=== PATIENT | female | born 1965 | race Caucasian/White ===

== ENCOUNTER 2024-03-08 17:13 | Observation (INO) | payer BC ==
--- NOTE | 2024-03-08 18:02 | ERPHSYRPT ---
- History of Present Illness Time Seen by Provider: 03/08/24 17:45 Source: patient Exam Limitations: no limitations, clinical condition Patient Subjective Stated Complaint: PT states "I slipped and fell and I hurt my knees and my right elbow." Triage Nursing Assessment: Pt presented alert and oriented X 3, skin pwd. Pt ambulates with an upright steady gait, able to speak in clear full sentences. Pt has abrasion noted to bilat knee and laceration noted to right elbow. Laceration to right elbow is 6 cm x 6 cm Occurred: just prior to arrival Reason for Fall: lost balance, slipped, tripped Injuries/Pain Location: upper extremity, lower extremity Loss of Consciousness: no loss of consciousness Quality: aching, burning, cramping Severity of Pain-Max: moderate Severity of Pain-Current: moderate Modifying Factors: Improves With: nothing Associated Symptoms (Fall): denies symptoms Allergies/Adverse Reactions: codeine Allergy (Severe, Verified 03/08/24 17:37) altered mental Home Medications: Nebivolol HCl [Bystolic] 2.5 mg PO DAILY 03/08/24 [History] Hx Tetanus, Diphtheria Vaccination/Date Given: No Hx Influenza Vaccination/Date Given: No Hx Pneumococcal Vaccination/Date Given: No Immunizations Up to Date: No Travel Risk - International Travel Have you traveled outside of the country in past 3 weeks: No - Emerging Infectious Disease Are you exhibiting symptoms associated with any current EIDs: No - Review of Systems Eyes: No Symptoms Ears, Nose, & Throat: No Symptoms Respiratory: No Symptoms Cardiac: No Symptoms Abdominal/Gastrointestinal: No Symptoms Genitourinary Symptoms: No Symptoms Musculoskeletal: No Symptoms Skin: No Symptoms Neurological: No Symptoms Psychological: No Symptoms Endocrine: No Symptoms Hematologic/Lymphatic: No Symptoms Immunological/Allergic: No Symptoms - Past Medical History Pertinent Past Medical History: Yes Cardiac History: Hypertension - Past Surgical History Past Surgical History: Yes Other Surgical History: c section. colonoscopy - Social History Smoking Status: Never smoker Exposure to second hand smoke: No Drug Use: none - Social Determinants of Health Will the patient participate in the screening: Declined to provide - Nursing Vital Signs Nursing Vital Signs: Initial Vital Signs Temperature 97.8 F 03/08/24 17:29 Pulse Rate 85 03/08/24 17:29 Respiratory Rate 18 03/08/24 17:29 Blood Pressure 153/75 03/08/24 17:29 O2 Sat by Pulse Oximetry 96 03/08/24 17:29 Pain Scale Pain Intensity 4 - Physical Exam General Appearance: no apparent distress Head Injury: no evidence of injury Eye Exam: PERRL/EOMI ENT Exam: airway nml Neck Exam: supple Respiratory/Chest Exam: normal breath sounds Cardiovascular Exam: normal heart sounds Gastrointestinal Exam: soft, normal bowel sounds Extremity Exam: other (patient has laceration to the right elbow that communicates with the joint with decreased rom and has bilateral abrasions to felipe th knees with pain with ROM ) Neurologic Exam: alert, oriented x 3 Skin Exam: other (there is a large laceration to the right elbow this ia 3 cm x 3 cm and no active bleeding there are large abrasions to the anterior aspects of both knees ) SpO2: 96 Ordered Tests: Active Orders 24 hr Category Date Time Status ELBOW (MINIMUM 3 VIEWS) Stat Exams 03/08/24 18:02 Taken KNEE (3 VIEWS) Stat Exams 03/08/24 18:02 Taken KNEE (3 VIEWS) Stat Exams 03/08/24 18:12 Taken CBC Stat Lab 03/08/24 18:00 Completed CMP Stat Lab 03/08/24 18:00 Completed Transfer Order Routine Transfer 03/08/24 Ordered Medication Summary Discontinued Medications Generic Name Dose Route Start Last Admin Trade Name Freq PRN Reason Stop Dose Admin Diphtheria/Tetanus/Acell Pertussis 0.5 ml 03/08/24 18:04 03/08/24 18:13 Tdap --Diph,Pertuss(Acell),Tet Vac/Pf 0.5 Ml Vial IM 03/08/24 18:05 0.5 ml .ONCE ONE Administration Diphtheria/Tetanus/Acell Pertussis Confirm 03/08/24 18:12 Tdap --Diph,Pertuss(Acell),Tet Vac/Pf 0.5 Ml Vial Administered 03/08/24 18:13 Dose 0.5 ml IM .STK-MED ONE Lab/Rad Data: Laboratory Result Diagrams 03/08/24 18:00 03/08/24 18:00 Laboratory Results 03/08/24 03/08/24 Range/Units 18:00 18:00 WBC 8.8 (4.0-10.5) x10^3/uL RBC 4.19 (4.1-5.4) x10^6/uL Hgb 12.2 (12.0-16.0) g/dL Hct 37.0 (35-47) % MCV 88.3 (78-100) fL MCH 29.1 (26-32) pg MCHC 33.0 (32-36) g/dL RDW 13.6 (11.5-14.0) % Plt Count 361 (150-450) x10^3/uL MPV 9.6 (7.5-11.0) fL Sodium 138 (135-145) mmol/L Potassium 3.9 (3.5-5.1) mmol/L Chloride 108 H (98-107) mmol/L Carbon Dioxide 22 (22-30) mmol/L Anion Gap 12.1 (5-15) MEQ/L BUN 12 (7-17) mg/dL Creatinine 0.63 (0.52-1.04) mg/dL Estimated GFR 102.1 ML/MIN Glucose 171 H (74-106) mg/dL Calcium 9.2 (8.4-10.2) mg/dL Total Bilirubin 0.50 (0.2-1.3) mg/dL AST 26 (14-36) U/L ALT 27 (0-35) U/L Alkaline Phosphatase 59 (38-126) U/L Serum Total Protein 7.8 (6.3-8.2) g/dL Albumin 4.3 (3.5-5.0) g/dL - Progress Progress Note: Care of this patient was discussed with Dr. Plaza the orthopedic surgeon on- call he will admit the patient to his service for surgical exploration and washout in the morning patient was updated with the plan and is agreeable she was given opioid analgesia and antibiotics will be ordered. 03/08/24 23:09 Will see patient in: hospital (observation) Counseled pt/family regarding: lab results Medical Desision Making - Discussion of managment Care discussed with:: specialist Reviewed:: Need for additional workup Agreed on:: decision to admit, place in obs - Departure Departure Disposition: Observation Clinical Impression: Contusion of knee, left, Contusion of right knee, Contusion, knee, Contusion of elbow, right Condition: Stable Critical Care Time: No Referrals: ALBERT MCCULLOUGH NP [Primary Care Provider] - Follow up/PCP as directed
[2024-03-08] MEDS ORDERED: Adacel Vial IM ONE (18:12)
[2024-03-08] MEDS: Adacel Vial IM ONE (18:13)
[2024-03-08 18:22] LABS: Hemoglobin 12.2 g/dL (12.0-16.0); Mean Cell Volume 88.3 fL (78-100); Mean Corpuscular Hemoglobin 29.1 pg (26-32); Mean Platelet Volume 9.6 fL (7.5-11.0); Platelet Count 361 x10^3/uL (150-450); Red Blood Count 4.19 x10^6/uL (4.1-5.4); Red Cell Distribution Width 13.6 % (11.5-14.0); White Blood Count 8.8 x10^3/uL (4.0-10.5)
[2024-03-08 18:36] LABS: ALBUMIN 4.3 g/dL (3.5-5.0); ANION GAP 12.1 MEQ/L (5-15); BILIRUBIN,TOTAL 0.5 mg/dL (0.2-1.3); Calcium 9.2 mg/dL (8.4-10.2); Creatinine 1 0.63 mg/dL (0.52-1.04); EST GLOMERULAR FILTRATION RATE 102.1 ML/MIN; Potassium 3.9 mmol/L (3.5-5.1); Total Protein 7.8 g/dL (6.3-8.2)
[2024-03-09] MEDS ORDERED: Zofran 4 MG/2 ML VIAL IV PRN (00:52)
[2024-03-09] MEDS ORDERED: Hydromorphone 1 mg/ml Injection IV PRN ×2 (00:52→01:19)
--- NOTE | 2024-03-09 01:13 | PCM.CONS ---
History of Present Illness - Reason for Consult Chief Complaint: fall Date of Consultation Date: 03/08/24 Reason for Consult: medical management Requesting Provider: Dr. Zeng Consulting Provider: LEONID VIGIL MD History of Present Illness: Ms. NEWELL is a 58 year old female with a past medical history significant for hypertension and hyperlipidemia previously on statin, now diet controlled, who presents to the hospital after going for a walk, then tripped over some concrete with her toe, then falling down initially on L knee, stumbled onto R knee, finally falling onto her R elbow. No head injury or loss of consciousness. She had some scrapes on her knees but was bleeding fairly profusely from her elbow, so she came to the ER. She was evaluated and [facility]. Hospitalist service was consulted to assist with her medical management pre/tracy/post operatively. She is resting in bed, awake/alert. No fever/chills. No chest pain or shortness of breath. No nausea, vomiting or diarrhea. No dysuria, hematuria or frequency. This visit was conducted entirely by telehealth with patient's consent. - Review of Systems Constitutional: No Fever, No Chills, No Fatigue Eyes: No Eye Pain, No Vision Changes Ears, Nose, & Throat: No Nose Discharge, No Sinus Drainage Respiratory: No Cough, No Orthopnea, No Short Of Breath Cardiac: No Chest Pain, No Palpitations Abdominal/Gastrointestinal: No Abdominal Pain, No Nausea, No Vomiting, No Diarrhea Genitourinary Symptoms: No Dysuria, No Frequency, No Hematuria Musculoskeletal: Fall, Joint Pain, No Neck Pain Skin: No Pruritis, No Rash Neurological: No Dizziness, No Focal Weakness Psychological: No Suicidal Ideations Endocrine: No Polyuria, No Polydipsia Medications & Allergies Home Medications: Home Medication List Nebivolol HCl [Bystolic] 2.5 mg PO DAILY 03/08/24 [History Confirmed 03/08/24] Allergies/Adverse Reactions: Allergies Allergy/AdvReac Type Severity Reaction Status Date / Time codeine Allergy Severe altered Verified 03/08/24 17:37 mental - Past Medical History Past Medical History: Yes Cardiac History: Hypertension - Past Surgical History Past Surgical History: Yes Other Surgical History: c section. colonoscopy - Social History Smoking Status: Never smoker Exposure to second hand smoke: No Alcohol: None Drug Use: none - Social Determinants of Health Will the patient participate in the screening: Declined to provide - Physical Exam Vital Signs: Vital Signs - 24 hr Temp Pulse Resp BP BP Pulse Ox 03/08/24 23:16 96 03/08/24 22:15 78 160/94 97 03/08/24 22:00 72 166/88 98 03/08/24 21:45 146/106 96 03/08/24 21:30 137/83 95 03/08/24 21:15 145/78 98 03/08/24 21:00 77 159/94 96 03/08/24 20:46 154/81 96 03/08/24 20:30 74 131/98 94 L 03/08/24 20:15 155/102 97 03/08/24 20:00 70 146/89 98 03/08/24 19:45 158/95 98 03/08/24 19:30 79 16 159/75 98 03/08/24 19:00 165/92 97 03/08/24 18:15 160/95 97 03/08/24 18:01 85 171/107 96 03/08/24 17:45 126/95 03/08/24 17:30 136/80 95 03/08/24 17:29 97.8 F 85 18 153/75 96 General Appearance: no apparent distress Neurologic Exam: alert, oriented x 3, cooperative Ears, Nose, Throat Exam: dry mucous membranes Neck Exam: supple Respiratory Exam: No respiratory distress Cardiovascular Exam: regular rate/rhythm Gastrointestinal/Abdomen Exam: soft Extremity Exam: swelling, No pedal edema Skin Exam: No rash Results - Labs Lab/Micro Results: Lab Results-Last 24 Hours 03/08/24 03/08/24 Range/Units 18:00 18:00 WBC 8.8 (4.0-10.5) x10^3/uL RBC 4.19 (4.1-5.4) x10^6/uL Hgb 12.2 (12.0-16.0) g/dL Hct 37.0 (35-47) % MCV 88.3 (78-100) fL MCH 29.1 (26-32) pg MCHC 33.0 (32-36) g/dL RDW 13.6 (11.5-14.0) % Plt Count 361 (150-450) x10^3/uL MPV 9.6 (7.5-11.0) fL Sodium 138 (135-145) mmol/L Potassium 3.9 (3.5-5.1) mmol/L Chloride 108 H (98-107) mmol/L Carbon Dioxide 22 (22-30) mmol/L Anion Gap 12.1 (5-15) MEQ/L BUN 12 (7-17) mg/dL Creatinine 0.63 (0.52-1.04) mg/dL Estimated GFR 102.1 ML/MIN Glucose 171 H (74-106) mg/dL Calcium 9.2 (8.4-10.2) mg/dL Total Bilirubin 0.50 (0.2-1.3) mg/dL AST 26 (14-36) U/L ALT 27 (0-35) U/L Alkaline Phosphatase 59 (38-126) U/L Serum Total Protein 7.8 (6.3-8.2) g/dL Albumin 4.3 (3.5-5.0) g/dL - Radiology Impressions Radiology Exams & Impressions: Radiology Procedures Category Date Time Status ELBOW (MINIMUM 3 VIEWS) Stat Exams 03/08/24 18:02 Taken KNEE (3 VIEWS) Stat Exams 03/08/24 18:02 Taken KNEE (3 VIEWS) Stat Exams 03/08/24 18:12 Taken Assessment/Plan (1) Fall (on)(from) sidewalk curb, initial encounter Current Visit: Yes Status: Acute Assessment & Plan: Secondary to tripping --> skinned knees and RUE elbow injury Code(s): W10.1XXA - FALL (ON)(FROM) SIDEWALK CURB, INITIAL ENCOUNTER (2) Essential (primary) hypertension Current Visit: Yes Status: Acute Assessment & Plan: On low dose Bystolic, blood pressure target 130/80 1. Continue bp meds 2. Low Na diet 3. Monitor blood pressure readings Code(s): I10 - ESSENTIAL (PRIMARY) HYPERTENSION (3) Contusion of elbow, right Current Visit: Yes Status: Acute Qualifiers: Encounter type: initial encounter Qualified Code(s): S50.01XA - Contusion of right elbow, initial encounter Assessment & Plan: Secondary to fall, with need for surgical intervention 1. NPO, gentle IVFs 2. Plans per surgery 3. Avoid blood thinners 4. PT Code(s): S50.01XA - CONTUSION OF RIGHT ELBOW, INITIAL ENCOUNTER
[2024-03-09] MEDS: Dextrose 5% -0.45 NaCl 1000 ML 1,000 ML IV SCH (02:21)
[2024-03-09 05:22] LABS: Hematocrit 38.3 % (35-47); Hemoglobin 12.5 g/dL (12.0-16.0); Mean Cell Volume 88.5 fL (78-100); Mean Corpuscular Hemoglobin 28.9 pg (26-32); Mean Corpuscular Hgb Concent. 32.6 g/dL (32-36); Mean Platelet Volume 9.4 fL (7.5-11.0); Platelet Count 342 x10^3/uL (150-450); Red Blood Count 4.33 x10^6/uL (4.1-5.4); Red Cell Distribution Width 13.5 % (11.5-14.0); White Blood Count 10.4 x10^3/uL (4.0-10.5)
[2024-03-09 06:07] LABS: ALBUMIN 4.4 g/dL (3.5-5.0); ANION GAP 10.5 MEQ/L (5-15); BILIRUBIN,TOTAL 0.6 mg/dL (0.2-1.3); Calcium 9.6 mg/dL (8.4-10.2); Creatinine 1 0.58 mg/dL (0.52-1.04); EST GLOMERULAR FILTRATION RATE 104.2 ML/MIN; Total Protein 7.9 g/dL (6.3-8.2)
--- NOTE | 2024-03-09 07:08 | PCM.HP ---
History of Present Illness - Chief Complaint Chief Complaint: Right elbow laceration History of Present Illness: is a 58 year old female, [id number],He fell at home yesterday about 4 PM lacerating her right elbow. She was seen by the emergency room with exploration of the wound down to bone with tendon exposed.Had no prior problems the elbow she does have a right ring finger trigger digit.Received tetanus prophylaxis and Kefzol and was admitted.Patient has no numbness or tingling. She has no other serious health problems other than hypertension.No anesthesia before without problems.No chest pain shortness of breath fevers or chills. She does keyboarding Medications & Allergies Home Medications: Home Medication List Nebivolol HCl [Bystolic] 2.5 mg PO DAILY 03/08/24 [History Confirmed 03/09/24] Allergies/Adverse Reactions: Allergies Allergy/AdvReac Type Severity Reaction Status Date / Time codeine Allergy Severe altered Verified 03/09/24 01:46 mental latex Allergy Mild Swelling Verified 03/09/24 03:20 - Past Medical History Past Medical History: Yes Neurological History: No Pertinent History ENT History: No Pertinent History Cardiac History: Hypertension Respiratory History: No Pertinent History Endocrine Medical History: No Pertinent History Musculoskelatal History: No Pertinent History GI Medical History: No Pertinent History History: No Pertinent History Pyscho-Social History: No Pertinent History Reproductive Disorders: No Pertinent History - Female History Are you now?: No - Past Surgical History Past Surgical History: Yes Neuro Surgical History: No Pertinent History Cardiac History: No Pertinent History Respiratory Surgery: No Pertinent History GI Surgical History: No Pertinent History Genitourinary Surgical Hx: No Pertinent History Musculskeletal Surgical Hx: No Pertinent History, Orthopedic Surgery Female Surgical History: No Pertinent History Other Surgical History: c section. colonoscopy/EGD. carpal tunnel surgery on right hand - Social History Smoking Status: Never smoker Exposure to second hand smoke: No Alcohol: None Drug Use: none - Social Determinants of Health Will the patient participate in the screening: Yes Do you worry about a steady place to live?: No Do you have any problems with any of the following?: No known problems In the past 12 months,have you had to go without utilities?: No Have you or anyone in your house had to go without enough: No Transportation Issues: No Has anyone in your support network made you feel unsafe?: No Does the patient want assistance with any of the above?: No - Physical Exam Vital Signs: Vital Signs - 24 hr Temp Pulse Resp BP BP Pulse Ox 03/09/24 04:00 97.5 F 77 20 176/72 96 03/09/24 01:27 97.5 F 73 20 186/84 96 03/09/24 00:32 184/93 03/09/24 00:15 166/87 98 03/09/24 00:00 72 18 178/115 96 03/08/24 23:45 167/103 98 03/08/24 23:30 163/92 97 03/08/24 23:16 96 03/08/24 23:15 153/88 96 03/08/24 23:00 77 18 166/98 97 03/08/24 22:45 160/85 97 03/08/24 22:30 154/93 97 03/08/24 22:15 78 160/94 98 03/08/24 22:00 72 166/88 98 03/08/24 21:45 146/106 96 03/08/24 21:30 137/83 95 03/08/24 21:15 145/78 98 03/08/24 21:00 77 159/94 96 03/08/24 20:46 154/81 96 03/08/24 20:30 74 131/98 94 L 03/08/24 20:15 155/102 97 03/08/24 20:00 70 146/89 98 03/08/24 19:45 158/95 98 03/08/24 19:30 79 16 159/75 98 03/08/24 19:00 165/92 97 03/08/24 18:15 160/95 97 03/08/24 18:01 85 171/107 96 03/08/24 17:45 126/95 03/08/24 17:30 136/80 95 03/08/24 17:29 97.8 F 85 18 153/75 96 Additional Findings: 03/09/24 07:04 Pleasant female, no apparent distress, alert and orient x 3, moderately obese Seen with her Heart regular rate rhythm Abdomen soft nontender positive bowel sounds Lungs clear bilaterally Right elbow shows about a 4 cmTransverse laceration with exposed triceps tendon and most likely tip of the olecranon.No bleeding. Patient is able to actively extend the elbow 5/5 and flex 5/5. Has good sensation all digits. 2+ radial pulse. 5/5 radial median and ulnar nerve function. Right elbow x-ray shows A soft tissue defectposteriorly with Air seen extra- articular Results - Labs Lab/Micro Results: Lab Results-Last 24 Hours 03/08/24 03/08/24 03/09/24 Range/Units 18:00 18:00 05:12 WBC 8.8 10.4 (4.0-10.5) x10^3/uL RBC 4.19 4.33 (4.1-5.4) x10^6/uL Hgb 12.2 12.5 (12.0-16.0) g/dL Hct 37.0 38.3 (35-47) % MCV 88.3 88.5 (78-100) fL MCH 29.1 28.9 (26-32) pg MCHC 33.0 32.6 (32-36) g/dL RDW 13.6 13.5 (11.5-14.0) % Plt Count 361 342 (150-450) x10^3/uL MPV 9.6 9.4 (7.5-11.0) fL Sodium 138 (135-145) mmol/L Potassium 3.9 (3.5-5.1) mmol/L Chloride 108 H (98-107) mmol/L Carbon Dioxide 22 (22-30) mmol/L Anion Gap 12.1 (5-15) MEQ/L BUN 12 (7-17) mg/dL Creatinine 0.63 (0.52-1.04) mg/dL Estimated GFR 102.1 ML/MIN Glucose 171 H (74-106) mg/dL Calcium 9.2 (8.4-10.2) mg/dL Total Bilirubin 0.50 (0.2-1.3) mg/dL AST 26 (14-36) U/L ALT 27 (0-35) U/L Alkaline Phosphatase 59 (38-126) U/L Serum Total Protein 7.8 (6.3-8.2) g/dL Albumin 4.3 (3.5-5.0) g/dL 03/09/24 Range/Units 05:12 WBC (4.0-10.5) x10^3/uL RBC (4.1-5.4) x10^6/uL Hgb (12.0-16.0) g/dL Hct (35-47) % MCV (78-100) fL MCH (26-32) pg MCHC (32-36) g/dL RDW (11.5-14.0) % Plt Count (150-450) x10^3/uL MPV (7.5-11.0) fL Sodium 139 (135-145) mmol/L Potassium 4.0 (3.5-5.1) mmol/L Chloride 108 H (98-107) mmol/L Carbon Dioxide 24 (22-30) mmol/L Anion Gap 10.5 (5-15) MEQ/L BUN 9 (7-17) mg/dL Creatinine 0.58 (0.52-1.04) mg/dL Estimated GFR 104.2 ML/MIN Glucose 105 (74-106) mg/dL Calcium 9.6 (8.4-10.2) mg/dL Total Bilirubin 0.60 (0.2-1.3) mg/dL AST 28 (14-36) U/L ALT 28 (0-35) U/L Alkaline Phosphatase 62 (38-126) U/L Serum Total Protein 7.9 (6.3-8.2) g/dL Albumin 4.4 (3.5-5.0) g/dL - Radiology Impressions Radiology Exams & Impressions: Radiology Procedures Category Date Time Status ELBOW (MINIMUM 3 VIEWS) Stat Exams 03/08/24 18:02 Taken KNEE (3 VIEWS) Stat Exams 03/08/24 18:02 Taken KNEE (3 VIEWS) Stat Exams 03/08/24 18:12 Taken Assessment/Plan (1) Laceration of right elbow Current Visit: Yes Status: Acute Assessment & Plan: Patient will undergo debridement of the wound and irrigationWith exploration of theTriceps tendon.She will have repair of any indicated structures.She understands the risk of surgery include bleeding, infection, damage to nerves or blood vessels, possible need for further surgery, and the risk of medical or anesthetic complications including the risk of .She will be sent home on p.o. antibiotics and have sutures removed in 12 to 14 days Code(s): S51.011A - LACERATION WITHOUT FOREIGN BODY OF RIGHT ELBOW, INIT ENCNTR
[2024-03-09] MEDS ORDERED: MARCAINE 0.25% PF/ EPI 1:200,000 ONE (07:14)
[2024-03-09] MEDS: CEFAZOLIN 2 GM-D5W BAG** 2 GM/50 ML ML IV ONE (07:23)
[2024-03-09 07:28] VITALS: RESP 16
[2024-03-09] MEDS ORDERED: SUBLIMAZE 100 MCG/2 ML ONE ×2 (07:28→08:38)
[2024-03-09] MEDS ORDERED: Xylocaine-Mpf 2% 5 Ml Vial ONE (07:28)
[2024-03-09] MEDS ORDERED: Versed 2 MG/2 ML Injection ONE (07:28)
[2024-03-09] MEDS ORDERED: DIPRIVAN 200 MG/20 ML IV ONE (07:28)
[2024-03-09] MEDS ORDERED: Decadron 4 MG INJ ONE (07:28)
[2024-03-09] MEDS ORDERED: Zofran 4 MG/2 ML VIAL ONE (07:28)
[2024-03-09] MEDS ORDERED: TORAdol 30 mg Injection ONE (07:58)
[2024-03-09] MEDS ORDERED: PHENYLEPHRINE HCL ONE (08:02)
[2024-03-09] MEDS ORDERED: Hydromorphone 1 mg/ml Injection ONE (08:38)
--- NOTE | 2024-03-09 08:41 | XRAY ---
Indication: Pain following fall. Comparison: None 3 view right knee demonstrates minimal medial joint space narrowing/spurring, tiny medial supracondylar spurring, minimal patellofemoral degenerative changes, and anterior bandage material. No other bony, articular, or soft tissue abnormalities.
--- NOTE | 2024-03-09 08:41 | XRAY ---
Indication: Pain following fall. Comparison: None 3 view right knee demonstrates minimal medial joint space narrowing/spurring and minimal patellofemoral degenerative changes. No other bony, articular, or soft tissue abnormalities.
--- NOTE | 2024-03-09 08:41 | XRAY ---
Indication: Pain following fall. Comparison: None 3 view right elbow demonstrates small medial/lateral epicondyle spurring and posterior soft tissue laceration. No other bony, articular, or soft tissue abnormalities.
[2024-03-09] MEDS ORDERED: BENADRYL 50 MG/ML ONE (09:16)
[2024-03-09] MEDS ORDERED: NEBIVOLOL HCL 2.5 MG PO SCH (10:00)
--- NOTE | 2024-03-09 11:29 | PCM.DS ---
Discharge Summary Date of Admission: 03/09/24 00:38 Date of Discharge: 03/09/24 Admitting Physician: NORM SLATER MD Consults: Consults on Case 03/09/24 03:28 Consult Tele-Health [Tele-Health Consult] ROUTINE Primary Care Provider: ALBERT MCCULLOUGH Allergies Allergies codeine Allergy (Severe, Verified 03/09/24 01:46) altered mental latex Allergy (Mild, Verified 03/09/24 03:20) Swelling Hospital Summary - Hospital Course Hospital Course: 03/09/24 is a 58 year old female with PMHX of HTN. She fell at home yesterday about 4 PM lacerating her right elbow. She was seen by the emergency room with exploration of the wound down to bone with tendon exposed. She had no prior problems to the elbow. She does have a right ring finger trigger digit. Received tetanus prophylaxis and Kefzol and was admitted. Patient has no numbness or tingling. She has no other serious health problems other than hypertension. No anesthesia before without problems.No chest pain shortness of breath fevers or chills. 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 She was taken to OR today by Ortho. Consent states, for right elbow wound to bone with tendon exposed, undergoing debridement with exploration of triceps tendon. Will defer to Ortho note as to what was done exactly. From orthopedic standpoint pt is ok to d/c today. Thank you for the consult. - Vitals & Intake/Output Vital Signs: Vital Signs Temperature 97.7 F 03/09/24 07:27 Pulse Rate 80 03/09/24 07:27 Respiratory Rate 16 03/09/24 07:27 Blood Pressure 182/87 03/09/24 07:27 O2 Sat by Pulse Oximetry 95 03/09/24 07:27 Intake & Output: Intake & Output 03/06/24 03/07/24 03/08/24 03/09/24 11:59 11:59 11:59 11:59 Intake Total 0 Balance 0 Weight 97.1 kg - Lab Result Diagrams: 03/09/24 05:12 03/09/24 05:12 Lab Results-Last 24 Hrs: Lab Results-Last 24 Hours 03/08/24 03/08/24 03/09/24 Range/Units 18:00 18:00 05:12 WBC 8.8 10.4 (4.0-10.5) x10^3/uL RBC 4.19 4.33 (4.1-5.4) x10^6/uL Hgb 12.2 12.5 (12.0-16.0) g/dL Hct 37.0 38.3 (35-47) % MCV 88.3 88.5 (78-100) fL MCH 29.1 28.9 (26-32) pg MCHC 33.0 32.6 (32-36) g/dL RDW 13.6 13.5 (11.5-14.0) % Plt Count 361 342 (150-450) x10^3/uL MPV 9.6 9.4 (7.5-11.0) fL Sodium 138 (135-145) mmol/L Potassium 3.9 (3.5-5.1) mmol/L Chloride 108 H (98-107) mmol/L Carbon Dioxide 22 (22-30) mmol/L Anion Gap 12.1 (5-15) MEQ/L BUN 12 (7-17) mg/dL Creatinine 0.63 (0.52-1.04) mg/dL Estimated GFR 102.1 ML/MIN Glucose 171 H (74-106) mg/dL Calcium 9.2 (8.4-10.2) mg/dL Total Bilirubin 0.50 (0.2-1.3) mg/dL AST 26 (14-36) U/L ALT 27 (0-35) U/L Alkaline Phosphatase 59 (38-126) U/L Serum Total Protein 7.8 (6.3-8.2) g/dL Albumin 4.3 (3.5-5.0) g/dL 03/09/24 Range/Units 05:12 WBC (4.0-10.5) x10^3/uL RBC (4.1-5.4) x10^6/uL Hgb (12.0-16.0) g/dL Hct (35-47) % MCV (78-100) fL MCH (26-32) pg MCHC (32-36) g/dL RDW (11.5-14.0) % Plt Count (150-450) x10^3/uL MPV (7.5-11.0) fL Sodium 139 (135-145) mmol/L Potassium 4.0 (3.5-5.1) mmol/L Chloride 108 H (98-107) mmol/L Carbon Dioxide 24 (22-30) mmol/L Anion Gap 10.5 (5-15) MEQ/L BUN 9 (7-17) mg/dL Creatinine 0.58 (0.52-1.04) mg/dL Estimated GFR 104.2 ML/MIN Glucose 105 (74-106) mg/dL Calcium 9.6 (8.4-10.2) mg/dL Total Bilirubin 0.60 (0.2-1.3) mg/dL AST 28 (14-36) U/L ALT 28 (0-35) U/L Alkaline Phosphatase 62 (38-126) U/L Serum Total Protein 7.9 (6.3-8.2) g/dL Albumin 4.4 (3.5-5.0) g/dL - Radiology Exams Ordered Rad Exams-Entire Visit: Radiology Procedures Category Date Time Status ELBOW (MINIMUM 3 VIEWS) Stat Exams 03/08/24 18:02 Completed KNEE (3 VIEWS) Stat Exams 03/08/24 18:02 Completed KNEE (3 VIEWS) Stat Exams 03/08/24 18:12 Completed Discharge Exam General Appearance: no apparent distress, alert Neurologic Exam: alert, oriented x 3, cooperative, normal mood/affect, nml cerebellar function, sensation nml, No motor deficits Eye Exam: PERRL, EOMI, eyes nml inspection Ears, Nose, Throat Exam: normal ENT inspection, pharynx normal, moist mucous membranes Neck Exam: normal inspection, non-tender, supple, full range of motion Respiratory Exam: normal breath sounds, lungs clear, No respiratory distress Cardiovascular Exam: regular rate/rhythm, normal heart sounds Gastrointestinal/Abdomen Exam: soft, No tenderness, No mass Pelvic Exam: deferred Rectal Exam: deferred Back Exam: normal inspection, normal range of motion, No CVA tenderness, No vertebral tenderness Extremity Exam: normal inspection, normal range of motion, limited range of motion, tenderness (right elbow) Skin Exam: normal color, warm, dry Final Diagnosis/Problem List - Final Discharge Diagnosis/Problem (1) Contusion of elbow, right Current Visit: Yes Status: Acute Assessment & Plan: Secondary to fall, with need for surgical intervention 1. NPO, gentle IVFs 2. surgery today 3. Avoid blood thinners 4. PT - IV narcotic pain med - Ortho sent in PO narcotic pain med for OP use - XR right elbow: 3 view right elbow demonstrates small medial/lateral epicondyle spurring and posterior soft tissue laceration. No other bony, articular, or soft tissue abnormalities. Code(s): S50.01XA - CONTUSION OF RIGHT ELBOW, INITIAL ENCOUNTER (2) Contusion of knee, left Current Visit: Yes Status: Acute Assessment & Plan: -Secondary to tripping --> skinned knees and RUE elbow injury - Left knee XR: 3 view left knee demonstrates minimal medial joint space narrowing/spurring and minimal patellofemoral degenerative changes. No other bony, articular, or soft tissue abnormalities Code(s): S80.02XA - CONTUSION OF LEFT KNEE, INITIAL ENCOUNTER (3) Contusion of right knee Current Visit: Yes Status: Acute Assessment & Plan: -Secondary to tripping --> skinned knees and RUE elbow injury - XR right knee 3 view right knee demonstrates minimal medial joint space narrowing/spurring and minimal patellofemoral degenerative changes. No other bony, articular, or soft tissue abnormalities Code(s): S80.01XA - CONTUSION OF RIGHT KNEE, INITIAL ENCOUNTER (4) Essential (primary) hypertension Current Visit: Yes Status: Acute Assessment & Plan: - controlled- continue home BP med Code(s): I10 - ESSENTIAL (PRIMARY) HYPERTENSION (5) Obesity (BMI 30-39.9) Current Visit: Yes Status: Chronic Assessment & Plan: - advised diet and exercise control Code(s): E66.9 - OBESITY, UNSPECIFIED - Discharge Discharge Date: 03/09/24 Disposition: Home, Self-Care Condition: Stable Prescriptions: New Hydrocodone/Acetaminophen [Hydrocodone-Acetamin 7.5-325] 1 each PO Q4H PRN PRN #15 tablet MDD 4 PRN Reason: Moderate To Severe Pain Continue Nebivolol HCl [Bystolic] 2.5 mg PO DAILY Additional Instructions: POST OP DAY 5- YOU MAY SHOWER AND CHANGE DRESSING. KEEP RIGHT ELBOW ELEVATED ON PILLOW AND USE ICE PACK INTERMITTENTLY TO HELP WITH SWELLING. Follow up with: ALBERT MCCULLOUGH NP [Primary Care Provider] - 03/15/24 1:30 pm PEDRITO RIDER NP [NON-STAFF PHY W/O PRIVILEGES] - 03/23/24 1:30 pm Forms: Work/School Release Form
[2024-03-09] MEDS: Bystolic 5 MG PO SCH (11:59)
[2024-03-09] MEDS ORDERED: NORCO 5/325 MG PO PRN (12:15)
--- NOTE | 2024-03-09 13:14 | OP ---
PROCEDURE DATE/TIME: 03/09/2024 0756 PREOPERATIVE DIAGNOSIS: Right complex elbow laceration. POSTOPERATIVE DIAGNOSIS: Right complex elbow laceration. PROCEDURE: Right elbow complex repair of laceration with total length of laceration about 8 cm. SURGEON: Andrea Plaza M.D. ANESTHESIA: General. QUANTITATIVE BLOOD LOSS: Zero. SPECIMEN: None. DRAIN: None. FLUIDS: Per anesthesia record. COMPLICATIONS: None. INDICATIONS FOR PROCEDURE: The patient is a 58-year-old female who fell last night and sustained a complex elbow laceration. It was felt that this should be repaired. FINDINGS: C-shaped laceration with a smaller 2 mm in the distal flap. The olecranon periosteum was pulled back what was repairable. Triceps tendon was intact. DESCRIPTION OF PROCEDURE: The patient was seen in the holding room. Identified the right elbow as correct this is initialed by me. She was already on Kefzol and up-to-date on tetanus. She was taken to the OR where she had general anesthesia with a bump under her back. She had sterile prep and drape over the right upper extremity. Tourniquet was placed on the arm but not used during the case. Time out was performed by me. The patient then had sharp debridement of the skin edges and then irrigation with normal saline using a bulb syringe. The periosteum was then repaired back with 0 Vicryl interrupted. The subcu tissue was closed with 2-0 Vicryl interrupted and the skin with 3-0 Nylon interrupted sutures. The wound was completely closable. The wound was infiltrated with about 8 cc of 0.25% Marcaine with epinephrine and sterile nonstick dressings were applied. DISPOSITION: Plan for the patient to do gentle range of motion. She may remove the dressing and shower in five days. She will return to see ortho in twelve to fourteen days for suture removal. She will be sent home today on Mead 7.5 mg 1 p.o. every 4 hours PRN script #15. She can take [id number] ibuprofen or Tylenol. She is to return sooner if she has any problems like drainage, erythema or fever.
[2024-03-09 13:34] VITALS: TEMP 96.6
[2024-03-09 13:36] VITALS: O2SAT 92
[2024-03-09 13:41] VITALS: BP 121/67; PULSE 69
== END 2024-03-09 12:30 | disposition home or self-care (01) ==
LOC: ED 17:13 → MED SURG 03-09 00:38
PROVIDERS: ADMIT Orthopaedic Surgery; ATTEND Orthopaedic Surgery
DX: S50.01XA Contusion of right elbow, initial encounter (principal); S80.02XA Contusion of left knee, initial encounter; S80.01XA Contusion of right knee, initial encounter; W19.XXXA Unspecified fall, initial encounter; M65.341 Trigger finger, right ring finger; I10 Essential (primary) hypertension; E66.9 Obesity, unspecified; Z79.899 Other long term (current) drug therapy
CPT/HCPCS: 13121; 13122; 36415; 73080; 73562; 80053; 85027; 90471; 99284; G0378; Q3014; 90715; J0690; J1100; J1170; J1200; J1885; J2250; J2371; J2405; J2704; J3010; A9270-GY

== ENCOUNTER 2024-12-05 06:00 | Day surgery (SDC) | payer BC ==
[2024-12-05 06:27] VITALS: RESP 16
[2024-12-05] MEDS ORDERED: Xylocaine 1% Vial 30 ML PF IJ ONE (07:28)
[2024-12-05 08:20] VITALS: BP 145/80; PULSE 69; TEMP 97.8; O2SAT 100
--- NOTE | 2024-12-06 12:15 | OP ---
SURGERY DATE/TIME: 12/05/2024 [id number] PREOPERATIVE DIAGNOSIS: Trigger finger, right long finger. POSTOPERATIVE DIAGNOSIS: Trigger finger, right long finger. PROCEDURE: Release of the A1 gem, right long finger. SURGEON: Adan Barry II, DO ANESTHESIA: Local with 1% Xylocaine plain. DESCRIPTION OF PROCEDURE AND FINDINGS: The patient was identified, and informed consent was obtained. The patient was taken to the operative suite and placed in supine position on the operating table, where the right upper extremity was prepped and draped in the usual sterile fashion. A standard time-out was taken. At this point, the area over the A1 gem of the long finger was anesthetized with 1% Xylocaine plain; about 1.5 mL of Xylocaine was utilized. Once an appropriate level of anesthesia had been obtained, the incision was carried down over the A1 gem. Skin was incised. Dissection was carried out through the subcutaneous tissue. The flexor tendons were easily identified, and neurovascular bundles were identified on either side and noted to well out of harm's way. The A1 gem was easily identified and released with the Ojeda tenotomy scissors. Once this had been accomplished, the patient was asked to actively flex and extend her finger. There was no further triggering noted. The wound was then irrigated and closed with interrupted 5-0 nylon suture. Adaptics, 4 x 4's, and a sterile dressing applied. Patient was transferred to Day Surgery in satisfactory condition, having tolerated the procedure well.
== END 2024-12-05 08:28 | disposition home or self-care (01) ==
LOC: SDC 06:00
PROVIDERS: ATTEND Orthopaedic Surgery
DX: M65.331 Trigger finger, right middle finger (principal)
CPT/HCPCS: 26055